=== PATIENT | male | born 1985 | race Caucasian/White ===

== ENCOUNTER 2021-07-10 13:50 | Emergency (ER) | payer MEDICAID ==
[~2021-07-10] VITALS: Ht 170.2 cm; Wt 95.5 kg
[~2021-07-10 13:50] MED LIST: IBUP-1984 PO; NO HOME MEDS; PRED20TA PO
[2021-07-10 14:57] VITALS: BP 112/74
[2021-07-10] MEDS ORDERED: IBUP-1986 PO (19:39)
[2021-07-10] MEDS ORDERED: PRED20TA PO (19:39)
[2021-07-10] MEDS ORDERED: ibuprofen tablet 400 MG TABLET PO ONE (19:40)
== END 2021-07-10 19:55 | disposition home or self-care (01) ==
LOC: ER 13:53
DX: M25.572 Pain in left ankle and joints of left foot (principal); F15.90 Other stimulant use, unspecified, uncomplicated; Z86.14 Personal history of Methicillin resistant Staphylococcus aureus infection; Z86.19 Personal history of other infectious and parasitic diseases; Z72.89 Other problems related to lifestyle; Z56.0 Unemployment, unspecified; Z79.899 Other long term (current) drug therapy
CPT/HCPCS: 99283

== ENCOUNTER 2022-07-07 17:27 | Emergency (ER) | payer MEDICAID ==
[~2022-07-07] VITALS: Ht 170.2 cm; Wt 80.0 kg
[~2022-07-07 17:27] MED LIST changes: +IBUP-1986 PO
[2022-07-07 17:33] VITALS: BP 100/61
[2022-07-07] MEDS ORDERED: HYDROcodone/acetaminophen 5mg/325mg tablet PO ONE (20:20)
[2022-07-07] MEDS ORDERED: CEPH500C81 PO ×3 (20:50→21:30)
[2022-07-07] MEDS ORDERED: cephalexin 500mg capsule PO ONE (20:50)
[2022-07-07] MEDS ORDERED: HYDR-3965 PO ×3 (20:50→21:30)
== END 2022-07-07 21:16 | disposition home or self-care (01) ==
LOC: ER 17:28
DX: S60.410A Abrasion of right index finger, initial encounter (principal); S60.411A Abrasion of left index finger, initial encounter; S60.413A Abrasion of left middle finger, initial encounter; S60.412A Abrasion of right middle finger, initial encounter; S60.415A Abrasion of left ring finger, initial encounter; S60.414A Abrasion of right ring finger, initial encounter; L03.114 Cellulitis of left upper limb; L03.113 Cellulitis of right upper limb; F41.9 Anxiety disorder, unspecified; F15.90 Other stimulant use, unspecified, uncomplicated; Z86.14 Personal history of Methicillin resistant Staphylococcus aureus infection; Z86.19 Personal history of other infectious and parasitic diseases; Z56.0 Unemployment, unspecified; Z98.890 Other specified postprocedural states; Z72.89 Other problems related to lifestyle; Z79.899 Other long term (current) drug therapy; W22.8XXA Striking against or struck by other objects, initial encounter; Y93.89 Activity, other specified; Y92.89 Other specified places as the place of occurrence of the external cause; Y99.8 Other external cause status
CPT/HCPCS: 73140; 99283